=== PATIENT | female | born 1995 | race Caucasian/White ===

== ENCOUNTER 2022-04-14 07:35 | Inpatient (IN) ==
[2022-04-14] MEDS ORDERED: OXYTOCIN 30 UNITS/500 ML BAG IV PRN (08:56)
[2022-04-14 09:24] LABS: Hematocrit (blood only) 36.1 % (34.1-44.9); Mean Corpuscular Hemoglobin 28.6 pg (25.0-34.0); Mean Corpuscular Hgb Conc 33.2 g/dL (32.0-36.0); Mean Corpuscular Volume 86.2 fL (80.0-100.0); Platelet Count 176 K/uL (130-400); RDW Coefficient of Variation 16.8 % (11.5-14.5); RDW Standard Deviation 52.6 fL (36.4-46.3); Red Blood Count 4.19 M/uL (3.93-5.22); White Blood Count 8.16 K/ul (4.8-10.8)
--- NOTE | 2022-04-14 09:59 | History & Physical Report ---
Date of Service April 14, 2022 Assessment & Plan (1) Post-dates : Plan Cytotec for cervical ripening Admission and Anticipated Discharge Date Admission Date: April 14, 2022 History of Present Illness Chief Complaint: induction of labor for post-dates Primary Care Provider: Phillip Uriostegui DO 26 f P0000 at 41.2 admitted for IOL for pos-dates Allergies Allergy/AdvReac Type Severity Reaction Status Date / Time No Known Allergies Allergy Verified 01/24/22 18:24 Home Medications Medication Instructions Recorded Confirmed Type ferrous sulfate 325 mg (65 mg 325 mg PO DAILY 01/24/22 04/14/22 History iron) tablet (iron) vit no.95-ferrous 1 tab PO DAILY 01/24/22 04/14/22 History fumarate 28 mg-folic acid 800 mcg tablet () Patient History Medical History ADHD Anxiety and depression Social History Smoking Status: Never smoker Hx Alcohol Use: No Hx Substance Use: No Preferred Language: Thai Communication Ability: Effective Financial Recruiter Required: No Beliefs That Will Affect Care: None marital status: Single Current Living Situation: Significant Other Current Living Situation Comment: Lives with fiance Other Information That Helps Us Care for You: No Feels Safe at Home: Yes Safety Concerns: Feels Safe At This Time Assistive Devices: None OB History GBS is neg 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 Review of Systems All systems reviewed & are unremarkable except as noted in HPI & below Physical Exam Constitutional: WD/WN, vitals as above Eyes: PERRL, conjunctivae normal, anicteric sclerae Respiratory: normal respiratory effort, lungs clear to auscultation Cardiovascular: RRR, no murmur, no edema Gastrointestinal (Abdomen): Inspection/Auscultation: abdomen normal to inspection Musculoskeletal: Extremities: extremities normal to inspection no edema Skin: no rashes, warm and dry Neurologic: patellar DTR's 2+ bilat, sensation intact Psychiatric: A+Ox3, euthymic affect Genitourinary: no vaginal lesions, no adnexal mass normal external appearance OB Exam Abdomen: + fundal height and + vertex Manual OB Exam: + cervical dilation fingertip, + cervical effacement 50% and + station high OB Exam Monitor Tracing: + external FHT monitor used, + external uterine monitor used, + category I and + normal FHT variability cervix firm and posterior Results & Data ([facility]) Vital Signs (Past 12 Hours) Vital Signs Temp Pulse Resp BP 04/14/22 07:49 36.7 C 100 H 18 129/76 04/14/22 07:54 100 H 129/76 Laboratory Results Laboratory Results - last 48 hr 04/14/22 09:11 WBC 8.16 RBC 4.19 Hgb 12.0 Hct 36.1 MCV 86.2 MCH 28.6 MCHC 33.2 RDW Std Deviation 52.6 H RDW Coeff of [place] 16.8 H Plt Count 176 MPV 10.0 Monitoring External Monitor Cat 1
[2022-04-14] MEDS ORDERED: DINOPROSTONE 10 MG INSERT PV ONE (10:15)
[2022-04-15] MEDS: miSOPROStoL 50 MCG TAB PO SCH ×3 (00:37→08:34)
[2022-04-15] MEDS ORDERED: OXYTOCIN 30 UNITS/500 ML BAG IV PRN (07:12)
--- NOTE | 2022-04-15 07:12 | Labor Progress Brief Note ---
Date of Service April 15, 2022 Assessment & Plan Admission and Anticipated Discharge Date Admission Date: April 14, 2022 Physical Exam Genitourinary: OB Exam Abdomen: + estimated weight (8 lbs) Manual OB Exam: + cervical dilation 1 cm, + cervical effacement 50% and + station -2 OB Exam Monitor Tracing: + external FHT monitor used, + external uterine monitor used, + category I and + normal FHT variability will start Oxytocin Results & Data ([facility]) Vital Signs (Past 12 Hours) Vital Signs Temp Pulse Resp BP 04/15/22 00:00 36.7 C 18 04/15/22 07:01 80 133/77 04/15/22 05:21 76 128/74 04/15/22 04:51 82 129/69 04/15/22 04:30 16 04/15/22 04:30 37.0 C 04/15/22 04:20 79 126/57 L 04/15/22 01:39 71 112/57 L 04/15/22 01:09 75 124/70 04/15/22 00:38 90 135/68 04/14/22 22:49 85 130/81 04/14/22 19:57 16 04/14/22 19:57 36.9 C 16 04/14/22 21:30 16 04/14/22 21:30 36.8 C 16 04/14/22 21:33 93 H 122/69 04/14/22 19:59 75 128/72
[2022-04-15] MEDS ORDERED: Nursing to Pharmacy Communication SCH (08:30)
[2022-04-15] MEDS: LACTATED RINGER'S 1,000 ML IV PRN ×3 (08:48→18:53)
[2022-04-15] MEDS ORDERED: BUTORPHANOL TARTRATE 1 MG/ML VIAL IV PRN (09:05)
--- NOTE | 2022-04-15 09:09 | Obstetrical Progress Note ---
Date of Service April 15, 2022 Assessment & Plan Admission and Anticipated Discharge Date Admission Date: April 14, 2022 Subjective Patient is seen and examined. Reviewed her records and confirmed with her. Denies medical problems except Depression/ anxiety. She was on medical Marijuana but stopped the the beginning of . she feels well and wants to wait her scheduled outpatient appointment with her P sychiatrist. No h/o STD'', no h/o HSV GBS neg VE: 1/ thick, -3, moderate FHR categ I [place]se: irregular ctxs She was started on low dose Oxytocin by Dr Barba, at 2 miu/min now. Discussed also option of Pizano balloon and she accepted. Continue to monitor. Results & Data ([facility]) Vital Signs (Past 12 Hours) Vital Signs Temp Pulse Resp BP 04/15/22 00:00 36.7 C 18 04/15/22 08:59 99 H 124/71 04/15/22 07:01 36.8 C 80 20 133/77 04/15/22 05:21 76 128/74 04/15/22 04:51 82 129/69 04/15/22 04:30 16 04/15/22 04:30 37.0 C 16 04/15/22 04:20 79 126/57 L 04/15/22 01:39 71 112/57 L 04/15/22 01:09 75 124/70 04/15/22 00:38 90 135/68 04/14/22 22:49 85 130/81 04/14/22 21:30 16 04/14/22 21:30 36.8 C 16 04/14/22 21:33 93 H 122/69
[2022-04-15] MEDS ORDERED: FLUCONAZOLE 50 MG TAB PO ONE (09:17)
--- NOTE | 2022-04-15 12:11 | Obstetrical Progress Note ---
Date of Service April 15, 2022 Assessment & Plan Admission and Anticipated Discharge Date Admission Date: April 14, 2022 Subjective Patient is reevaluated. She got up to use the bathroom and the Pizano bulb bulb came out. She is not painful and has not required any pain medication yet. Vaginal exam, cervix is 3 to 4 cm dilated, 30% effaced, head at -3 station. heart rate category 1, Shelly has been showing contractions every 2 to 5 minutes, Pitocin was at 4 mIU/min. Plan to continue to monitor and augment with Pitocin. All questions were answered. Results & Data ([facility]) Vital Signs (Past 12 Hours) Vital Signs Temp Pulse Resp BP 04/15/22 11:59 89 18 139/76 04/15/22 11:05 36.7 C 104 H 18 140/83 04/15/22 08:59 99 H 124/71 04/15/22 07:01 36.8 C 80 20 133/77 04/15/22 05:21 76 128/74 04/15/22 04:51 82 129/69 04/15/22 04:30 16 04/15/22 04:30 37.0 C 16 04/15/22 04:20 79 126/57 L 04/15/22 01:39 71 112/57 L 04/15/22 01:09 75 124/70 04/15/22 00:38 90 135/68
[2022-04-15] MEDS ORDERED: BUPIVACAINE 0.25% 30 ML VIAL ONE (14:14)
[2022-04-15] MEDS ORDERED: LIDOCAINE 2%/EPINEPHRINE 1:200,000 20 ML SDV ONE ×2 (14:14→23:05)
[2022-04-15] MEDS ORDERED: fentaNYL citrate 100 MCG/2 ML VIAL ONE (14:14)
[2022-04-15] MEDS ORDERED: SODIUM CHLORIDE 0.9% INJ 10 ML VIAL ONE (14:14)
[2022-04-15] MEDS ORDERED: ePHEDrine sulfate 50 MG/ML AMP ONE (14:14)
[2022-04-15] MEDS ORDERED: fentaNYL 2MCG/ML ROPIVACAINE 1.25MG/ML 100 ML BAG EPI ONE (14:15)
[2022-04-15] MEDS ORDERED: NALOXONE HCL 0.4 MG/1 ML VIAL/CARP IV PRN (14:33)
[2022-04-15] MEDS ORDERED: ONDANSETRON INJ 2 MG/ML 2 ML VIAL IV PRN (14:33)
[2022-04-15] MEDS ORDERED: diphenhydrAMINE 50 MG/ML VIAL IV PRN (14:33)
[2022-04-15] MEDS ORDERED: ePHEDrine sulfate 50 MG/ML AMP IV PRN (14:33)
[2022-04-15] MEDS ORDERED: NALOXONE HCL 1 MG in SODIUM CHLORIDE 0.9% 1000ML 1,000 ML IV PRN (14:33)
[2022-04-15] MEDS ORDERED: NALBUPHINE HCL INJ 10 MG/ML AMP IV PRN (14:33)
--- NOTE | 2022-04-15 14:34 | Anesthesiology Consultation ---
Date of Service April 15, 2022 Assessment & Plan ASA ASA2 Proposed Anesthesia Anesthesia Type: Labor Epidural Risk / Benefits Reviewed With: PT / POA / Parent / Guardian, Accepts Plan and Informed Consent Obtained History Height/Weight Height: 5 ft 8 in Weight: 97.976 kg Allergies Allergy/AdvReac Type Severity Reaction Status Date / Time No Known Allergies Allergy Verified 01/24/22 18:24 Medications Home Medications Medication Instructions Recorded Confirmed Last Taken ferrous sulfate 325 mg (65 mg 325 mg PO DAILY 01/24/22 04/14/22 04/14/22 iron) tablet (iron) vit no.95-ferrous 1 tab PO DAILY 01/24/22 04/14/22 04/14/22 fumarate 28 mg-folic acid 800 mcg tablet () Active Medications Generic Name Dose Route Start Last Admin Trade Name Freq PRN Reason Stop Dose Admin Lactated Ringer's 1,000 mls @ 125 mls/hr 04/14/22 08:56 04/15/22 14:57 Lr IV 04/16/22 08:55 125 mls/hr .Q8H PRN Infusion L&D Protocol Protocol Oxytocin 30 units in 500 mls @ 10 mls/hr 04/15/22 07:12 04/15/22 13:40 Pitocin IV 04/17/22 07:11 0.6 units/hr .Q24H PRN 10 mls/hr Labor Induction/Augmentation Titration Protocol 0.6 UNITS/HR Ropivacaine 100 ml 04/15/22 14:33 04/15/22 14:53 Fentanyl 2mcg/Ml Ropivacaine 1.25mg/Ml 100 Ml Bag EPI 04/16/22 14:32 100 ml PRN PRN Administration Pain R/T Labor Protocol Past Medical History Medical History ADHD Anxiety and depression Exercise / Class Metabolic Activity II 4-5 Yardwork/Stairs/Walk up hill Past Anesthesia History No Hx of Anesthesia Complications and No Family Hx of Anesthesia Complications History of PONV No Hx of PONV and No Hx of Motion Sickness Social History Smoking Status: Never smoker Hx Alcohol Use: No Hx Substance Use: No Review of Systems denies fever/cough/ colds/ chest pain/ SOB/ JESSI denies JESSI Physical Exam Vital Signs Last Vital Signs Temp 36.7 C 04/15/22 11:05 Pulse 82 04/15/22 15:29 Resp 18 04/15/22 11:59 BP 114/67 04/15/22 15:25 Pulse Ox 98 04/15/22 15:29 ENMT Mouth: no TMJ abnormality and no dentition abnormality Thyromental Distance: > or= 3.5 Finger Breadths Mallampati Class: II Neck neck extension not limited Respiratory normal respiratory effort; no respiratory distress Auscultation: lungs clear to auscultation bilaterally Cardiovascular Rate/Rhythm: regular rate and regular rhythm Neurologic moves all extremities Psychiatric Orientation: alert and oriented x 3 Testing Laboratory Results 04/14/22 09:11
[2022-04-15] MEDS: fentaNYL 2MCG/ML ROPIVACAINE 1.25MG/ML 100 ML BAG EPI PRN ×2 (14:53→22:39)
--- NOTE | 2022-04-15 15:27 | Obstetrical Progress Note ---
Date of Service April 15, 2022 Assessment & Plan Admission and Anticipated Discharge Date Admission Date: April 14, 2022 Subjective Patient is comfortable now, she has received epidural. VE; 4/ 40%/ -2, AROM'ed small clear fluid FHR categ I Aldie: irregular ctxs q 2-5 min, Oxytocin is at 10 miu/min Continue to monitor closely Results & Data ([facility]) Vital Signs (Past 12 Hours) Vital Signs Temp Pulse Resp BP Pulse Ox 04/15/22 15:24 73 97 04/15/22 15:21 76 119/70 04/15/22 15:19 74 97 04/15/22 15:15 72 113/68 04/15/22 15:14 76 98 04/15/22 15:11 76 114/65 04/15/22 15:09 75 98 04/15/22 15:06 80 121/70 04/15/22 15:04 78 98 04/15/22 14:59 84 96 04/15/22 15:00 81 116/71 04/15/22 14:58 77 118/71 04/15/22 14:56 78 125/70 04/15/22 14:54 75 129/68 99 04/15/22 14:52 77 133/69 04/15/22 14:49 73 100 04/15/22 14:50 69 129/77 04/15/22 14:44 82 100 04/15/22 14:39 93 04/15/22 14:39 96 H 04/15/22 14:39 104 H 93 04/15/22 13:51 71 126/75 04/15/22 11:59 89 18 139/76 04/15/22 11:05 36.7 C 104 H 18 140/83 04/15/22 08:59 99 H 124/71 04/15/22 07:01 36.8 C 80 20 133/77 04/15/22 05:21 76 128/74 04/15/22 04:51 82 129/69 04/15/22 04:30 16 04/15/22 04:30 37.0 C 16 04/15/22 04:20 79 126/57 L
--- NOTE | 2022-04-15 18:12 | Obstetrical Progress Note ---
Date of Service April 15, 2022 Assessment & Plan Admission and Anticipated Discharge Date Admission Date: April 14, 2022 Subjective Patient is reevaluated. She is is still comfortable. VE; unchanged, 4 cm/ 50%/ -2 IUPC is placed Oxytocin is at 16 miu/ min. Plan to continue to monitor, titrate Oxytocin dose as needed per IUPC Results & Data ([facility]) Vital Signs (Past 12 Hours) Vital Signs Temp Pulse Resp BP Pulse Ox 04/15/22 18:04 73 98 04/15/22 18:03 93 H 91 04/15/22 17:59 79 98 04/15/22 17:54 82 98 04/15/22 17:49 77 97 04/15/22 17:48 67 111/60 04/15/22 17:44 73 97 04/15/22 17:39 86 96 04/15/22 17:34 78 99 04/15/22 17:33 74 121/67 04/15/22 17:29 76 99 04/15/22 17:24 86 98 04/15/22 17:19 97 04/15/22 17:19 65 04/15/22 17:19 64 113/60 04/15/22 17:14 65 97 04/15/22 17:09 61 97 04/15/22 17:04 63 96 04/15/22 17:03 63 116/62 04/15/22 16:59 63 96 04/15/22 16:49 64 97 04/15/22 16:54 64 97 04/15/22 16:48 61 115/60 04/15/22 16:44 66 95 04/15/22 16:39 63 97 04/15/22 16:34 69 96 04/15/22 16:33 68 121/67 04/15/22 16:29 69 97 04/15/22 16:24 66 97 04/15/22 16:19 66 97 04/15/22 16:18 75 122/63 04/15/22 16:14 75 96 04/15/22 16:09 74 95 04/15/22 16:04 70 119/65 96 04/15/22 15:59 68 95 04/15/22 15:54 61 95 04/15/22 15:53 68 94 04/15/22 15:49 60 95 04/15/22 15:48 70 111/62 07/30/22 15:46 66 94 04/15/22 15:44 63 95 04/15/22 15:41 65 94 04/15/22 15:39 74 97 04/15/22 15:34 85 97 04/15/22 15:30 74 116/68 04/15/22 15:29 82 98 04/15/22 15:25 80 114/67 04/15/22 15:24 73 97 04/15/22 15:21 76 119/70 04/15/22 15:19 74 97 04/15/22 15:15 72 113/68 04/15/22 15:14 76 98 04/15/22 15:11 76 114/65 04/15/22 15:09 75 98 04/15/22 15:06 80 121/70 04/15/22 15:04 78 98 04/15/22 14:59 84 96 04/15/22 15:00 81 116/71 04/15/22 14:58 77 118/71 04/15/22 14:56 78 125/70 04/15/22 14:54 75 129/68 99 04/15/22 14:52 77 133/69 04/15/22 14:49 73 100 04/15/22 14:50 69 129/77 04/15/22 14:44 82 100 04/15/22 14:39 93 04/15/22 14:39 96 H 04/15/22 14:39 104 H 93 04/15/22 13:51 71 126/75 04/15/22 11:59 89 18 139/76 04/15/22 11:05 36.7 C 104 H 18 140/83 04/15/22 08:59 99 H 124/71 04/15/22 07:01 36.8 C 80 20 133/77
--- NOTE | 2022-04-15 19:51 | Obstetrical Progress Note ---
Date of Service April 15, 2022 Assessment & Plan Admission and Anticipated Discharge Date Admission Date: April 14, 2022 Subjective Heart rate in the decelerations to 80s to 90s for about 2 minutes, then un able to monitor the baby externally, scalp electrode is placed, heart rate running between 110-120s with moderate variability no more decels. IU has been monitoring contractions every 1 to 4 minutes averaging around 200 [place] units per 10 minutes, Oxytocin is at 20 mill international unit per minute, Continue to monitor closely. Results & Data ([facility]) Vital Signs (Past 12 Hours) Vital Signs Temp Pulse Resp BP Pulse Ox 04/15/22 19:44 76 99 04/15/22 19:39 73 98 04/15/22 19:34 75 120/57 L 99 04/15/22 19:29 73 98 04/15/22 19:24 68 98 04/15/22 19:19 76 98 04/15/22 19:18 79 121/66 04/15/22 19:14 77 97 04/15/22 19:09 89 98 04/15/22 19:04 72 96 04/15/22 19:03 71 116/64 04/15/22 18:59 75 95 04/15/22 18:54 90 96 04/15/22 18:49 86 96 04/15/22 18:48 68 115/63 04/15/22 18:44 71 95 04/15/22 18:43 73 94 04/15/22 18:39 84 96 04/15/22 17:13 18 04/15/22 17:13 36.8 C 18 04/15/22 18:34 69 95 04/15/22 18:33 68 117/67 04/15/22 18:29 72 95 04/15/22 18:24 80 97 04/15/22 18:19 80 97 04/15/22 18:18 77 116/66 04/15/22 18:14 91 H 96 04/15/22 18:09 88 95 04/15/22 18:04 73 98 04/15/22 18:03 93 H 91 04/15/22 17:59 79 98 04/15/22 17:54 82 98 04/15/22 17:49 77 97 04/15/22 17:48 67 111/60 04/15/22 17:44 73 97 04/15/22 17:39 86 96 04/15/22 17:34 78 99 04/15/22 17:33 74 121/67 04/15/22 17:29 76 99 04/15/22 17:24 86 98 04/15/22 17:19 97 04/15/22 17:19 65 04/15/22 17:19 64 113/60 04/15/22 17:14 65 97 04/15/22 17:09 61 97 04/15/22 17:04 63 96 04/15/22 17:03 63 116/62 04/15/22 16:59 63 96 04/15/22 16:49 64 97 04/15/22 16:54 64 97 04/15/22 16:48 61 115/60 04/15/22 16:44 66 95 04/15/22 16:39 63 97 04/15/22 16:34 69 96 04/15/22 16:33 68 121/67 04/15/22 16:29 69 97 04/15/22 16:24 66 97 04/15/22 16:19 66 97 04/15/22 16:18 75 122/63 04/15/22 16:14 75 96 04/15/22 16:09 74 95 04/15/22 16:04 70 119/65 96 04/15/22 15:59 68 95 04/15/22 15:54 61 95 04/15/22 15:53 68 94 04/15/22 15:49 60 95 04/15/22 15:48 70 111/62 04/15/22 15:46 66 94 04/15/22 15:44 63 95 04/15/22 15:41 65 94 04/15/22 15:39 74 97 04/15/22 15:34 85 97 04/15/22 15:30 74 116/68 04/15/22 15:29 82 98 04/15/22 15:25 80 114/67 04/15/22 15:24 73 97 04/15/22 15:21 76 119/70 04/15/22 15:19 74 97 04/15/22 15:15 36.7 C 72 20 113/68 04/15/22 15:14 76 98 04/15/22 15:11 76 114/65 04/15/22 15:09 75 98 04/15/22 15:06 80 121/70 04/15/22 15:04 78 98 04/15/22 14:59 84 96 04/15/22 15:00 81 116/71 04/15/22 14:58 77 118/71 04/15/22 14:56 78 125/70 04/15/22 14:54 75 129/68 99 04/15/22 14:52 77 133/69 04/15/22 14:49 73 100 04/15/22 14:50 69 129/77 04/15/22 14:44 82 100 04/15/22 14:39 93 04/15/22 14:39 96 H 04/15/22 14:39 104 H 93 04/15/22 13:51 71 126/75 04/15/22 11:59 89 18 139/76 04/15/22 11:05 36.7 C 104 H 18 140/83 04/15/22 08:59 99 H 124/71
[2022-04-15] MEDS ORDERED: AZITHROMYCIN 500 MG in DEXTROSE 5% 250 ML IV STA (21:48)
--- NOTE | 2022-04-15 21:48 | Obstetrical Progress Note ---
Date of Service April 15, 2022 Assessment & Plan Admission and Anticipated Discharge Date Admission Date: April 14, 2022 Subjective Patient is related. Cervix is unchanged, head is still high with no descent. heart rate category 1, [place] with irregular contraction pattern sometimes episodes of contractions every minutes for 10 minutes and then every 2 to 4 minutes. Unable to get a good contraction pattern with IV oxytocin and AROM. Overall we are getting more than 200 [place] units in 10 minutes. Discussed the findings with the patient, no cervical change nor change in station despite adequate uterine contractions. Discussed the option of expectant management to continue with Pitocin versus primary section. Discussed the risks and benefits of each. Patient understands and wants to think about it and then decide. All questions were answered. Results & Data ([facility]) Vital Signs (Past 12 Hours) Vital Signs Temp Pulse Resp BP Pulse Ox O2 Del Method 04/15/22 19:10 Room Air 04/15/22 21:44 83 98 04/15/22 21:39 85 99 04/15/22 21:34 82 98 04/15/22 21:33 78 139/75 04/15/22 21:29 94 H 98 04/15/22 21:24 71 97 04/15/22 21:19 79 98 04/15/22 21:18 86 137/94 04/15/22 21:14 88 97 04/15/22 21:09 82 95 04/15/22 21:08 69 94 04/15/22 21:00 18 04/15/22 21:00 18 04/15/22 20:50 36.7 C 04/15/22 21:04 64 96 04/15/22 21:03 62 120/63 04/15/22 20:59 64 96 04/15/22 20:54 65 98 04/15/22 20:49 78 98 04/15/22 20:48 68 122/67 04/15/22 20:44 68 98 04/15/22 20:39 69 98 04/15/22 20:30 18 04/15/22 20:30 18 04/15/22 20:34 72 99 04/15/22 20:33 73 123/70 04/15/22 20:29 71 99 04/15/22 20:24 88 99 04/15/22 19:30 18 07/30/22 19:30 18 04/15/22 20:00 20 04/15/22 20:00 20 04/15/22 20:19 99 04/15/22 20:19 81 04/15/22 20:19 73 117/66 04/15/22 20:14 76 99 04/15/22 19:30 18 04/15/22 19:30 18 04/15/22 19:15 18 04/15/22 19:15 36.4 C L 18 04/15/22 20:09 67 98 04/15/22 20:04 73 99 04/15/22 20:03 70 124/68 04/15/22 19:59 73 98 04/15/22 19:54 76 98 04/15/22 19:49 79 97 04/15/22 19:50 78 113/86 04/15/22 19:44 76 99 04/15/22 19:39 73 98 04/15/22 19:34 75 120/57 L 99 04/15/22 19:29 73 98 04/15/22 19:24 68 98 04/15/22 19:19 76 98 04/15/22 19:18 79 121/66 04/15/22 19:14 77 97 04/15/22 19:09 89 98 04/15/22 19:04 72 96 04/15/22 19:03 71 116/64 04/15/22 18:59 75 95 04/15/22 18:54 90 96 04/15/22 18:49 86 96 04/15/22 18:48 68 115/63 04/15/22 18:44 71 95 04/15/22 18:43 73 94 04/15/22 18:39 84 96 04/15/22 17:13 18 04/15/22 17:13 36.8 C 18 04/15/22 18:34 69 95 04/15/22 18:33 68 117/67 04/15/22 18:29 72 95 04/15/22 18:24 80 97 04/15/22 18:19 80 97 04/15/22 18:18 77 116/66 04/15/22 18:14 91 H 96 04/15/22 18:09 88 95 04/15/22 18:04 73 98 04/15/22 18:03 93 H 91 04/15/22 17:59 79 98 04/15/22 17:54 82 98 04/15/22 17:49 77 97 04/15/22 17:48 67 111/60 04/15/22 17:44 73 97 04/15/22 17:39 86 96 04/15/22 17:34 78 99 04/15/22 17:33 74 121/67 04/15/22 17:29 76 99 04/15/22 17:24 86 98 04/15/22 17:19 97 04/15/22 17:19 65 04/15/22 17:19 64 113/60 04/15/22 17:14 65 97 04/15/22 17:09 61 97 04/15/22 17:04 63 96 04/15/22 17:03 63 116/62 04/15/22 16:59 63 96 04/15/22 16:49 64 97 04/15/22 16:54 64 97 04/15/22 16:48 61 115/60 04/15/22 16:44 66 95 04/15/22 16:39 63 97 04/15/22 16:34 69 96 04/15/22 16:33 68 121/67 04/15/22 16:29 69 97 04/15/22 16:24 66 97 04/15/22 16:19 66 97 04/15/22 16:18 75 122/63 04/15/22 16:14 75 96 04/15/22 16:09 74 95 04/15/22 16:04 70 119/65 96 04/15/22 15:59 68 95 04/15/22 15:54 61 95 04/15/22 15:53 68 94 04/15/22 15:49 60 95 04/15/22 15:48 70 111/62 04/15/22 15:46 66 94 04/15/22 15:44 63 95 04/15/22 15:41 65 94 04/15/22 15:39 74 97 04/15/22 15:34 85 97 04/15/22 15:30 74 116/68 04/15/22 15:29 82 98 04/15/22 15:25 80 114/67 04/15/22 15:24 73 97 04/15/22 15:21 76 119/70 04/15/22 15:19 74 97 04/15/22 15:15 36.7 C 72 20 113/68 04/15/22 15:14 76 98 04/15/22 15:11 76 114/65 04/15/22 15:09 75 98 04/15/22 15:06 80 121/70 04/15/22 15:04 78 98 04/15/22 14:59 84 96 04/15/22 15:00 81 116/71 04/15/22 14:58 77 118/71 04/15/22 14:56 78 125/70 04/15/22 14:54 75 129/68 99 04/15/22 14:52 77 133/69 04/15/22 14:49 73 100 04/15/22 14:50 69 129/77 04/15/22 14:44 82 100 04/15/22 14:39 93 04/15/22 14:39 96 H 04/15/22 14:39 104 H 93 04/15/22 13:51 71 126/75 04/15/22 11:59 89 18 139/76 04/15/22 11:05 36.7 C 104 H 18 140/83
[2022-04-15] MEDS ORDERED: LACTATED RINGER'S 1,000 ML IV SCH ×2 (22:00→23:00)
--- NOTE | 2022-04-15 22:48 | Obstetrical Progress Note ---
Date of Service April 15, 2022 Assessment & Plan Admission and Anticipated Discharge Date Admission Date: April 14, 2022 Subjective Patient and came back from outside, they have discussed and decided to h ave . I checked her cervix again since it has been more than an hour since the last check, no change in cervix nor station of the head. Discussed risks of surgery including but not limited to bleeding, infection, injury to surrounding organs like bowels bladder ureters, more surgeries to correct complications, scaring, adhesions, increased risk of blood clots in legs and lungs. We also discussed the alternative expectant management and possible risks. She agreed all and signed an informed consent for primary low transverse C- section. All questions were answered. Results & Data ([facility]) Vital Signs (Past 12 Hours) Vital Signs Temp Pulse Resp BP Pulse Ox O2 Del Method 04/15/22 19:10 Room Air 04/15/22 22:44 92 H 100 04/15/22 22:39 98 H 100 04/15/22 22:34 93 H 99 04/15/22 22:33 86 138/74 04/15/22 22:29 96 H 99 04/15/22 22:24 94 H 98 04/15/22 22:19 91 H 98 04/15/22 22:18 89 127/72 04/15/22 22:14 85 99 04/15/22 22:09 86 98 04/15/22 22:00 18 04/15/22 22:00 18 04/15/22 21:30 20 04/15/22 21:30 20 04/15/22 22:04 99 04/15/22 22:04 84 04/15/22 22:04 80 135/78 04/15/22 21:59 82 99 04/15/22 21:54 83 99 04/15/22 21:49 99 04/15/22 21:49 88 04/15/22 21:49 78 137/80 04/15/22 21:44 83 98 04/15/22 21:39 85 99 04/15/22 21:34 82 98 04/15/22 21:33 78 139/75 04/15/22 21:29 94 H 98 04/15/22 21:24 71 97 04/15/22 21:19 79 98 04/15/22 21:18 86 137/94 04/15/22 21:14 88 97 04/15/22 21:09 82 95 04/15/22 21:08 69 94 04/15/22 21:00 18 04/15/22 21:00 18 04/15/22 20:50 36.7 C 04/15/22 21:04 64 96 04/15/22 21:03 62 120/63 04/15/22 20:59 64 96 04/15/22 20:54 65 98 04/15/22 20:49 78 98 04/15/22 20:48 68 122/67 04/15/22 20:44 68 98 04/15/22 20:39 69 98 04/15/22 20:30 18 04/15/22 20:30 18 04/15/22 20:34 72 99 04/15/22 20:33 73 123/70 04/15/22 20:29 71 99 04/15/22 20:24 88 99 04/15/22 19:30 18 04/15/22 19:30 18 04/15/22 20:00 20 04/15/22 20:00 20 04/15/22 20:19 99 04/15/22 20:19 81 04/15/22 20:19 73 117/66 04/15/22 20:14 76 99 04/15/22 19:30 18 04/15/22 19:30 18 04/15/22 19:15 18 04/15/22 19:15 36.4 C L 18 04/15/22 20:09 67 98 04/15/22 20:04 73 99 04/15/22 20:03 70 124/68 04/15/22 19:59 73 98 04/15/22 19:54 76 98 04/15/22 19:49 79 97 04/15/22 19:50 78 113/86 04/15/22 19:44 76 99 04/15/22 19:39 73 98 04/15/22 19:34 75 120/57 L 99 04/15/22 19:29 73 98 04/15/22 19:24 68 98 04/15/22 19:19 76 98 04/15/22 19:18 79 121/66 04/15/22 19:14 77 97 04/15/22 19:09 89 98 04/15/22 19:04 72 96 04/15/22 19:03 71 116/64 04/15/22 18:59 75 95 04/15/22 18:54 90 96 04/15/22 18:49 86 96 04/15/22 18:48 68 115/63 04/15/22 18:44 71 95 04/15/22 18:43 73 94 04/15/22 18:39 84 96 04/15/22 17:13 18 04/15/22 17:13 36.8 C 18 04/15/22 18:34 69 95 04/15/22 18:33 68 117/67 04/15/22 18:29 72 95 04/15/22 18:24 80 97 04/15/22 18:19 80 97 04/15/22 18:18 77 116/66 04/15/22 18:14 91 H 96 04/15/22 18:09 88 95 04/15/22 18:04 73 98 04/15/22 18:03 93 H 91 04/15/22 17:59 79 98 04/15/22 17:54 82 98 04/15/22 17:49 77 97 04/15/22 17:48 67 111/60 04/15/22 17:44 73 97 04/15/22 17:39 86 96 04/15/22 17:34 78 99 04/15/22 17:33 74 121/67 04/15/22 17:29 76 99 04/15/22 17:24 86 98 04/15/22 17:19 97 04/15/22 17:19 65 04/15/22 17:19 64 113/60 04/15/22 17:14 65 97 04/15/22 17:09 61 97 04/15/22 17:04 63 96 04/15/22 17:03 63 116/62 04/15/22 16:59 63 96 04/15/22 16:49 64 97 04/15/22 16:54 64 97 04/15/22 16:48 61 115/60 04/15/22 16:44 66 95 04/15/22 16:39 63 97 04/15/22 16:34 69 96 04/15/22 16:33 68 121/67 04/15/22 16:29 69 97 04/15/22 16:24 66 97 04/15/22 16:19 66 97 04/15/22 16:18 75 122/63 04/15/22 16:14 75 96 04/15/22 16:09 74 95 04/15/22 16:04 70 119/65 96 04/15/22 15:59 68 95 04/15/22 15:54 61 95 04/15/22 15:53 68 94 04/15/22 15:49 60 95 04/15/22 15:48 70 111/62 04/15/22 15:46 66 94 04/15/22 15:44 63 95 04/15/22 15:41 65 94 04/15/22 15:39 74 97 04/15/22 15:34 85 97 04/15/22 15:30 74 116/68 04/15/22 15:29 82 98 04/15/22 15:25 80 114/67 04/15/22 15:24 73 97 04/15/22 15:21 76 119/70 04/15/22 15:19 74 97 04/15/22 15:15 36.7 C 72 20 113/68 04/15/22 15:14 76 98 04/15/22 15:11 76 114/65 04/15/22 15:09 75 98 04/15/22 15:06 80 121/70 04/15/22 15:04 78 98 04/15/22 14:59 84 96 04/15/22 15:00 81 116/71 04/15/22 14:58 77 118/71 04/15/22 14:56 78 125/70 04/15/22 14:54 75 129/68 99 04/15/22 14:52 77 133/69 04/15/22 14:49 73 100 04/15/22 14:50 69 129/77 04/15/22 14:44 82 100 04/15/22 14:39 93 04/15/22 14:39 96 H 04/15/22 14:39 104 H 93 04/15/22 13:51 71 126/75 04/15/22 11:59 89 18 139/76 04/15/22 11:05 36.7 C 104 H 18 140/83
[2022-04-15] MEDS ORDERED: CITRIC ACID/SODIUM CITRATE 15 ML UDC PO ONE (22:50)
[2022-04-15] MEDS ORDERED: ceFAZolin 2000MG 2,000 MG/15 ML SYR IV ONE (23:00)
[2022-04-15] MEDS ORDERED: ONDANSETRON INJ 2 MG/ML 2 ML VIAL ONE (23:04)
[2022-04-15] MEDS ORDERED: MoRPHine SULFATE PF 1 MG/ML 10 ML AMP/VIAL ONE (23:04)
[2022-04-15] MEDS ORDERED: PHENYLEPHRINE 100MCG/ML 5ML SYR ONE (23:04)
[2022-04-15] MEDS ORDERED: OXYTOCIN 10 UNITS/ML 10ML VIAL ONE (23:04)
[2022-04-16] MEDS ORDERED: PROMETHAZINE HCL 6.25 MG in SODIUM CHLORIDE 0.9% 50 ML IV PRN (00:12)
[2022-04-16] MEDS ORDERED: MoRPHine SULFATE 2 MG/ML CARP IV PRN (00:12)
[2022-04-16] MEDS ORDERED: ePHEDrine sulfate 50 MG/ML AMP IV PRN (00:12)
[2022-04-16] MEDS ORDERED: MoRPHine SULFATE PF 1 MG/ML 10 ML AMP/VIAL EPI ONE (00:12)
[2022-04-16] MEDS ORDERED: NALOXONE HCL 0.4 MG/1 ML VIAL/CARP IV PRN (00:12)
[2022-04-16] MEDS ORDERED: diphenhydrAMINE 50 MG/ML VIAL IV PRN ×2 (00:12→18:12)
[2022-04-16] MEDS ORDERED: NALOXONE HCL 1 MG in SODIUM CHLORIDE 0.9% 1000ML 1,000 ML IV PRN (00:12)
[2022-04-16] MEDS ORDERED: NALOXONE HCL 0.08 MG in SYRINGE 1.8 ML IV PRN (00:12)
[2022-04-16] MEDS ORDERED: ONDANSETRON INJ 2 MG/ML 2 ML VIAL IV PRN ×2 (00:12→18:12)
[2022-04-16] MEDS ORDERED: LACTATED RINGER'S 500 ML IV PRN (00:12)
[2022-04-16] MEDS ORDERED: NO NARCOTICS OR SEDATIVES SCH (00:15)
[2022-04-16] MEDS ORDERED: DC INTRASPINAL MORPHINE SCH (00:15)
[2022-04-16] MEDS ORDERED: SODIUM CHLORIDE 0.9% 1000ML 1,000 ML IV SCH (00:15)
[2022-04-16] MEDS ORDERED: MAGNESIUM HYDROXIDE SUSP 30 ML UDC PO PRN (00:57)
[2022-04-16] MEDS ORDERED: DIPHTHERIA/TETANUS/PERTUSSIS 0.5 ML SYR/VIAL IM ONE (00:57)
[2022-04-16] MEDS ORDERED: HYDROCORTISONE ACETATE 25 MG SUPP PR PRN (00:57)
[2022-04-16] MEDS ORDERED: BENZOCAINE 20% AER SPR 82.5 GM CAN EXT PRN (00:57)
[2022-04-16] MEDS ORDERED: MEASLES, MUMPS & RUBELLA VIRUS VIAL SQ ONE (00:57)
[2022-04-16] MEDS ORDERED: SENNA 8.6 MG TAB PO PRN (00:57)
[2022-04-16] MEDS ORDERED: ACETAMINOPHEN 1000 MG/100 ML IV IV PRN (00:57)
--- NOTE | 2022-04-16 01:03 | Post Operative Brief Note ---
Immediate Post Op Note v1 Date of Surgery April 16, 2022 Pre & Post Diagnosis Operation Date: 04/15/22 23:30 Pre-Op Diagnosis: primary section for arrest of dilation and CPD Post-Op Diagnosis: same as pre op diagnosis I identified the patient and participated in the time-out.: Yes Procedure Operation Date: 04/15/22 23:30 Actual Procedures p Section in LD(Not Applicable) - Yanira Ashley MD Surgeon Yanira Ashley MD [employer] eleazar MCKEON Estimated Blood Loss 600 Findings Consistent with Post-Op Diagnosis Drains Pizano Catheter (150 ML) Anesthesia Type Labor Epidural Complications none
--- NOTE | 2022-04-16 01:04 | Anesthesia Procedure Note ---
Date of Service April 16, 2022 Anesthesia Post Epidural Note Vital Signs Vital Signs: Temp Pulse Resp BP Pulse Ox O2 Del Method 36.9 C 92 H 20 142/74 H 99 04/15/22 23:00 04/16/22 01:03 04/15/22 23:24 04/16/22 01:03 04/16/22 01:02 04/15/22 19:10 Notes Mental Status: alert / awake / arousable and participated in evaluation Nausea / Vomiting: adequately controlled Pain: adequately controlled Airway Patency, RR, SpO2: stable & adequate BP & HR: stable & adequate Hydration State: stable & adequate Neuraxial Anesthesia: was administered and sensory block is resolving Anesthetic Complications: no major complications apparent and Pt Satisfied with anesthetic care Epidural: Removed without complications and With tip intact
--- NOTE | 2022-04-16 01:05 | Anesthesiology Progress Note ---
Date of Service April 16, 2022 Anesthesia Post Procedure Vital Signs Vital Signs: Temp Pulse Resp BP Pulse Ox O2 Del Method 04/15/22 19:10 Room Air 04/16/22 01:02 89 99 04/16/22 01:03 92 H 142/74 H 04/16/22 00:59 86 117/70 04/16/22 00:57 92 H 100 04/15/22 23:24 20 04/15/22 23:24 20 04/15/22 23:00 18 04/15/22 23:00 36.9 C 18 04/15/22 23:19 91 H 100 04/15/22 23:18 90 133/77 04/15/22 23:14 94 H 100 04/15/22 23:09 97 H 100 04/15/22 23:04 93 H 100 04/15/22 22:30 20 04/15/22 22:30 20 04/15/22 23:03 93 H 139/76 04/15/22 22:59 91 H 100 04/15/22 22:54 97 H 100 04/15/22 22:49 96 H 100 04/15/22 22:48 93 H 146/81 H 04/15/22 22:46 99 H 91 04/15/22 22:44 92 H 100 04/15/22 22:39 98 H 100 04/15/22 22:34 93 H 99 04/15/22 22:33 86 138/74 04/15/22 22:29 96 H 99 04/15/22 22:24 94 H 98 04/15/22 22:19 91 H 98 04/15/22 22:18 89 127/72 04/15/22 22:14 85 99 04/15/22 22:09 86 98 04/15/22 22:00 18 04/15/22 22:00 18 04/15/22 21:30 20 04/15/22 21:30 20 04/15/22 22:04 99 04/15/22 22:04 84 04/15/22 22:04 80 135/78 04/15/22 21:59 82 99 04/15/22 21:54 83 99 04/15/22 21:49 99 04/15/22 21:49 88 04/15/22 21:49 78 137/80 04/15/22 21:44 83 98 04/15/22 21:39 85 99 04/15/22 21:34 82 98 04/15/22 21:33 78 139/75 04/15/22 21:29 94 H 98 04/15/22 21:24 71 97 04/15/22 21:19 79 98 04/15/22 21:18 86 137/94 04/15/22 21:14 88 97 04/15/22 21:09 82 95 04/15/22 21:08 69 94 04/15/22 21:00 18 04/15/22 21:00 18 04/15/22 20:50 36.7 C 04/15/22 21:04 64 96 04/15/22 21:03 62 120/63 04/15/22 20:59 64 96 04/15/22 20:54 65 98 04/15/22 20:49 78 98 04/15/22 20:48 68 122/67 04/15/22 20:44 68 98 04/15/22 20:39 69 98 04/15/22 20:30 18 04/15/22 20:30 18 04/15/22 20:34 72 99 04/15/22 20:33 73 123/70 04/15/22 20:29 71 99 04/15/22 20:24 88 99 04/15/22 19:30 18 04/15/22 19:30 18 04/15/22 20:00 20 04/15/22 20:00 20 04/15/22 20:19 99 04/15/22 20:19 81 04/15/22 20:19 73 117/66 04/15/22 20:14 76 99 04/15/22 19:30 18 04/15/22 19:30 18 04/15/22 19:15 18 04/15/22 19:15 36.4 C L 18 04/15/22 20:09 67 98 04/15/22 20:04 73 99 04/15/22 20:03 70 124/68 04/15/22 19:59 73 98 04/15/22 19:54 76 98 04/15/22 19:49 79 97 04/15/22 19:50 78 113/86 04/15/22 19:44 76 99 04/15/22 19:39 73 98 04/15/22 19:34 75 120/57 L 99 04/15/22 19:29 73 98 04/15/22 19:24 68 98 04/15/22 19:19 76 98 04/15/22 19:18 79 121/66 04/15/22 19:14 77 97 04/15/22 19:09 89 98 04/15/22 19:04 72 96 04/15/22 19:03 71 116/64 04/15/22 18:59 75 95 04/15/22 18:54 90 96 04/15/22 18:49 86 96 04/15/22 18:48 68 115/63 04/15/22 18:44 71 95 04/15/22 18:43 73 94 04/15/22 18:39 84 96 04/15/22 17:13 18 04/15/22 17:13 36.8 C 18 04/15/22 18:34 69 95 04/15/22 18:33 68 117/67 04/15/22 18:29 72 95 04/15/22 18:24 80 97 04/15/22 18:19 80 97 04/15/22 18:18 77 116/66 04/15/22 18:14 91 H 96 04/15/22 18:09 88 95 04/15/22 18:04 73 98 04/15/22 18:03 93 H 91 04/15/22 17:59 79 98 04/15/22 17:54 82 98 04/15/22 17:49 77 97 04/15/22 17:48 67 111/60 04/15/22 17:44 73 97 04/15/22 17:39 86 96 04/15/22 17:34 78 99 04/15/22 17:33 74 121/67 04/15/22 17:29 76 99 04/15/22 17:24 86 98 04/15/22 17:19 97 04/15/22 17:19 65 04/15/22 17:19 64 113/60 04/15/22 17:14 65 97 04/15/22 17:09 61 97 04/15/22 17:04 63 96 04/15/22 17:03 63 116/62 04/15/22 16:59 63 96 04/15/22 16:49 64 97 04/15/22 16:54 64 97 04/15/22 16:48 61 115/60 04/15/22 16:44 66 95 04/15/22 16:39 63 97 04/15/22 16:34 69 96 04/15/22 16:33 68 121/67 04/15/22 16:29 69 97 04/15/22 16:24 66 97 04/15/22 16:19 66 97 04/15/22 16:18 75 122/63 04/15/22 16:14 75 96 04/15/22 16:09 74 95 04/15/22 16:04 70 119/65 96 04/15/22 15:59 68 95 04/15/22 15:54 61 95 04/15/22 15:53 68 94 04/15/22 15:49 60 95 04/15/22 15:48 70 111/62 04/15/22 15:46 66 94 04/15/22 15:44 63 95 04/15/22 15:41 65 94 04/15/22 15:39 74 97 04/15/22 15:34 85 97 04/15/22 15:30 74 116/68 04/15/22 15:29 82 98 04/15/22 15:25 80 114/67 04/15/22 15:24 73 97 04/15/22 15:21 76 119/70 04/15/22 15:19 74 97 04/15/22 15:15 36.7 C 72 20 113/68 04/15/22 15:14 76 98 04/15/22 15:11 76 114/65 04/15/22 15:09 75 98 04/15/22 15:06 80 121/70 04/15/22 15:04 78 98 04/15/22 14:59 84 96 04/15/22 15:00 81 116/71 04/15/22 14:58 77 118/71 04/15/22 14:56 78 125/70 04/15/22 14:54 75 129/68 99 04/15/22 14:52 77 133/69 04/15/22 14:49 73 100 04/15/22 14:50 69 129/77 04/15/22 14:44 82 100 04/15/22 14:39 93 04/15/22 14:39 96 H 04/15/22 14:39 104 H 93 04/15/22 13:51 71 126/75 04/15/22 11:59 89 18 139/76 04/15/22 11:05 36.7 C 104 H 18 140/83 04/15/22 08:59 99 H 124/71 04/15/22 07:01 36.8 C 80 20 133/77 04/15/22 05:21 76 128/74 04/15/22 04:51 82 129/69 04/15/22 04:30 16 04/15/22 04:30 37.0 C 16 04/15/22 04:20 79 126/57 L 04/15/22 01:39 71 112/57 L 04/15/22 01:09 75 124/70 Transfer of Care Handoff Completed per policy Notes Mental Status: alert / awake / arousable and participated in evaluation Patient Amnestic to Procedure: No Nausea / Vomiting: adequately controlled Pain: adequately controlled Airway Patency, RR, SpO2: stable & adequate BP & HR: stable & adequate Hydration State: stable & adequate Neuraxial Anesthesia: was administered and sensory block is resolving Anesthetic Complications: no major complications apparent and Pt Satisfied with anesthetic care
[2022-04-16] MEDS: KETOROLAC 30 MG/ML VIAL IV PRN ×3 (01:14→14:09)
[2022-04-16] MEDS: NALBUPHINE HCL INJ 10 MG/ML AMP IV PRN ×2 (02:47→03:14)
[2022-04-16] MEDS: OXYTOCIN 20 UNITS in LACTATED RINGER'S 1,000 ML IV SCH ×2 (02:50→14:17)
[2022-04-16] MEDS ORDERED: ceFAZolin 2000MG 2,000 MG/15 ML SYR IV ONE (07:00)
--- NOTE | 2022-04-16 07:19 | Operative Report (OR) ---
DATE OF SURGERY: Start 04/15/2022, finished 04/16/2022. PREOPERATIVE DIAGNOSES: The patient is a 26-year-old G1, P0 at 41 weeks and 3 days of gestation, who was admitted for induction of labor on 04/14/2022, arrest of dilatation despite adequate uterine contractions documented by IUPC, asynclitic presentation of head. POSTOPERATIVE DIAGNOSES: The patient is a 26-year-old G1, P0 at 41 weeks and 3 days of gestation, who was admitted for induction of labor on 04/14/2022, arrest of dilatation despite adequate uterine contractions documented by IUPC, asynclitic presentation of head. Nuchal cord around the neck x3. SURGEON: Yanira Ashley MD. MARBLE POLISHER: MIKE Jeffrey, labor and delivery nurse. ESTIMATED BLOOD LOSS: 600 mL. DRAINS: Pizano catheter drained 150 mL of clear urine. ANESTHESIA: Epidural. ANESTHESIOLOGIST: Dr. Castillo. COMPLICATIONS: None. FINDINGS: Baby was a viable female infant delivered on 04/15/2022 at 11:54 p.m. Apgars were 8/9, weight was 3596 grams. Maternal findings: Thinned lower uterine segment, otherwise normal uterus and fallopian tubes and ovaries. DESCRIPTION OF PROCEDURE: The patient was taken to the operating room where epidural anesthesia was found to be adequate. She was placed in dorsal supine position with a leftward tilt. She was prepared and draped in the usual sterile fashion. A Pfannenstiel skin incision was made and carried through to the underlying layer of fascia with the Bovie. Fascia was incised in the midline and incision was extended laterally with the help of Willis scissors. The rectus fascia was dissected from the rectus muscles sharply with the Willis scissors superior and inferiorly. Rectus muscles were in the midline. Peritoneum was entered bluntly and peritoneal incision was extended superiorly and inferiorly with good visualization of bladder. Bladder blade was inserted. The vesicouterine peritoneum was identified, grasped with pickups, and entered sharply with Metzenbaum scissors. Bladder flap was created digitally and bladder blade was reinserted. Lower uterine segment was thinned. We were able to feel the head very easily on the top of the pubic bone, which was bulging from the pubic bone, indicating asynclitic presentation and CPD. The lower segment was incised in a transverse fashion gently and then bluntly with fingers, entered, membranes were ruptured. Clear fluid was obtained. The uterine incision was extended laterally with the help of fingers and head was brought to the incision and delivered without difficulty. There was a nuchal cord around the neck x3. Those were reduced and baby was delivered with minimal traction without difficulty. Mouth and nose were suctioned. Cord was clamped x2 and cut at 1 minute delay. Baby was vigorously moving and crying at that point and the baby was handed off to the waiting pediatric team. The rest of the cord was thick and tortuous, indicating clotting in the cord vessels. Placenta was delivered manually as intact and complete. Uterus was exteriorized and cleared of all clots and debris. This uterine incision was repaired with 0 Vicryl in a running locked fashion. A second imbricating layer was placed with another 0 Vicryl in a running locked fashion. There was some oozing in the middle, which was controlled with [id number] stitches x3. Cul-de-sac was irrigated with warm normal saline and suctioned. It was checked to be normal peritoneum, normal ovaries and fallopian tubes. Uterus was returned to the abdomen. Pelvis was irrigated with warm normal saline and suctioned. There was another oozing close to the left corner. It was repaired with 0 Vicryl with [id number] stitches x3. Ample of time was spent to check the incision for hemostasis. Excellent hemostasis was achieved. Then parietal peritoneum was reapproximated with 3-0 Vicryl together with the rectus muscle layer with the same suture in a running fashion. Rectus muscles and under the fascia were hemostatic. The fascia was reapproximated with 0 Vicryl in a running fashion. Subcuticular fat tissue was brought together with 3-0 Vicryl in a running fashion. The skin was closed with 4-0 Monocryl in a subcuticular fashion. The patient tolerated the procedure well. Sponge, lap, needle count was correct x3. She was given 2 grams of cefazolin before surgery and 500 mg of azithromycin during surgery. She was taken to the recovery room in stable condition. No complications happened and I was present during whole procedure. Job ID: [id number] [facility]
[2022-04-16] MEDS: FERROUS SULFATE 325 MG TAB PO SCH (08:12)
[2022-04-16] MEDS: PRENATAL VITAMIN 1 TAB PO SCH (08:12)
[2022-04-16] MEDS: SIMETHICONE 80 MG CHEW PO SCH ×4 (08:12→20:22)
[2022-04-16] MEDS: DOCUSATE SODIUM 100 MG CAP PO SCH ×2 (08:12→18:37)
--- NOTE | 2022-04-16 08:33 | Obstetrical Progress Note ---
Date of Service April 16, 2022 Assessment & Plan Admission and Anticipated Discharge Date Admission Date: April 14, 2022 Subjective Postop check Patient is seen and examined Feels well, no complaints Pain is under control with meds No CP/ SOB/ Dizziness/ N&V/ VB/ Leg pain Not OOB yet Tolerating clears Explained about the surgery and findings Vital Signs Temp Pulse Pulse Resp BP BP Pulse Ox 04/16/22 07:10 20 98 04/16/22 06:00 16 97 04/16/22 05:00 16 99 04/16/22 03:45 36.3 C L 80 16 127/95 98 04/16/22 03:45 16 99 04/16/22 03:05 36.9 C 18 04/16/22 02:35 18 04/16/22 02:05 16 04/16/22 02:05 16 04/16/22 01:55 16 04/16/22 01:45 18 04/16/22 01:35 18 04/16/22 01:25 20 04/16/22 01:15 18 04/16/22 01:03 36.8 C 16 04/16/22 03:14 93 H 138/87 04/16/22 03:12 85 97 04/16/22 03:07 98 H 98 04/16/22 03:02 101 H 99 04/16/22 02:57 97 H 99 04/16/22 02:56 81 128/62 04/16/22 02:52 88 99 04/16/22 02:47 82 98 04/16/22 02:45 75 126/72 04/16/22 02:42 82 99 04/16/22 02:37 88 98 04/16/22 02:35 82 128/73 04/16/22 02:32 89 98 04/16/22 02:27 80 97 04/16/22 02:26 83 123/70 04/16/22 02:22 82 98 04/16/22 02:17 77 97 04/16/22 02:16 75 127/64 04/16/22 02:12 81 98 04/16/22 02:07 87 98 04/16/22 02:02 84 98 04/16/22 01:57 93 H 98 04/16/22 01:56 96 H 142/88 H 04/16/22 01:52 91 H 97 04/16/22 01:47 97 H 95 04/16/22 01:46 90 140/82 04/16/22 01:42 96 H 99 04/16/22 01:37 95 H 99 04/16/22 01:36 95 H 138/81 04/16/22 01:32 88 99 04/16/22 01:27 93 H 99 04/16/22 01:26 90 113/81 04/16/22 01:22 94 H 100 04/16/22 01:17 98 H 98 04/16/22 01:15 89 129/74 04/16/22 01:12 93 H 100 04/16/22 01:07 95 H 99 04/16/22 01:08 94 H 90 04/16/22 01:02 89 99 04/16/22 01:03 92 H 142/74 H 04/16/22 00:59 86 117/70 04/16/22 00:57 92 H 100 04/15/22 23:24 20 04/15/22 23:24 20 04/15/22 23:00 18 04/15/22 23:00 36.9 C 18 04/15/22 23:19 91 H 100 04/15/22 23:18 90 133/77 04/15/22 23:14 94 H 100 04/15/22 23:09 97 H 100 04/15/22 23:04 93 H 100 04/15/22 22:30 20 04/15/22 22:30 20 04/15/22 23:03 93 H 139/76 04/15/22 22:59 91 H 100 04/15/22 22:54 97 H 100 04/15/22 22:49 96 H 100 04/15/22 22:48 93 H 146/81 H 04/15/22 22:46 99 H 91 04/15/22 22:44 92 H 100 04/15/22 22:39 98 H 100 04/15/22 22:34 93 H 99 04/15/22 22:33 86 138/74 04/15/22 22:29 96 H 99 04/15/22 22:24 94 H 98 04/15/22 22:19 91 H 98 04/15/22 22:18 89 127/72 04/15/22 22:14 85 99 04/15/22 22:09 86 98 04/15/22 22:00 18 04/15/22 22:00 18 04/15/22 21:30 20 04/15/22 21:30 20 04/15/22 22:04 99 04/15/22 22:04 84 04/15/22 22:04 80 135/78 04/15/22 21:59 82 99 04/15/22 21:54 83 99 04/15/22 21:49 99 04/15/22 21:49 88 04/15/22 21:49 78 137/80 04/15/22 21:44 83 98 04/15/22 21:39 85 99 04/15/22 21:34 82 98 04/15/22 21:33 78 139/75 04/15/22 21:29 94 H 98 04/15/22 21:24 71 97 04/15/22 21:19 79 98 04/15/22 21:18 86 137/94 04/15/22 21:14 88 97 04/15/22 21:09 82 95 04/15/22 21:08 69 94 04/15/22 21:00 18 04/15/22 21:00 18 04/15/22 20:50 36.7 C 04/15/22 21:04 64 96 04/15/22 21:03 62 120/63 04/15/22 20:59 64 96 04/15/22 20:54 65 98 04/15/22 20:49 78 98 04/15/22 20:48 68 122/67 04/15/22 20:44 68 98 04/15/22 20:39 69 98 04/15/22 20:34 72 99 04/15/22 20:33 73 123/70 Lab Results 04/14/22 Range/Units 09:11 WBC 8.16 (4.8-10.8) K/ul RBC 4.19 (3.93-5.22) M/uL Hgb 12.0 (12.0-16.0) g/dl Hct 36.1 (34.1-44.9) % MCV 86.2 (80.0-100.0) fL MCH 28.6 (25.0-34.0) pg MCHC 33.2 (32.0-36.0) g/dL RDW Std Deviation 52.6 H (36.4-46.3) fL RDW Coeff of Deidre 16.8 H (11.5-14.5) % Plt Count 176 (130-400) K/uL MPV 10.0 (9.4-12.3) fL PE: General: Alert, orientedx3, NAD CVS: S1S2 RRR Lungs: CTAB Abd: soft, NT, ND, BS+, fundus firm, below U, Dressing: C/D/I No VB Ext: NT, no edema, SCD's on AP: 26 yo female s/p Primary Csection , pod#0 VSS Afebrile doing well Continue to routine postop care Encourage PO intake, ambulation D/C clark in pm Results & Data ([facility]) Vital Signs (Past 12 Hours) Vital Signs Temp Pulse Pulse Resp BP BP Pulse Ox 04/16/22 07:10 20 98 04/16/22 06:00 16 97 04/16/22 05:00 16 99 04/16/22 03:45 36.3 C L 80 16 127/95 98 04/16/22 03:45 16 99 04/16/22 03:05 36.9 C 18 04/16/22 02:35 18 04/16/22 02:05 16 04/16/22 02:05 16 04/16/22 01:55 16 04/16/22 01:45 18 04/16/22 01:35 18 04/16/22 01:25 20 04/16/22 01:15 18 04/16/22 01:03 36.8 C 16 04/16/22 03:14 93 H 138/87 04/16/22 03:12 85 97 04/16/22 03:07 98 H 98 04/16/22 03:02 101 H 99 04/16/22 02:57 97 H 99 04/16/22 02:56 81 128/62 04/16/22 02:52 88 99 04/16/22 02:47 82 98 04/16/22 02:45 75 126/72 04/16/22 02:42 82 99 04/16/22 02:37 88 98 04/16/22 02:35 82 128/73 04/16/22 02:32 89 98 04/16/22 02:27 80 97 04/16/22 02:26 83 123/70 04/16/22 02:22 82 98 04/16/22 02:17 77 97 04/16/22 02:16 75 127/64 04/16/22 02:12 81 98 04/16/22 02:07 87 98 04/16/22 02:02 84 98 04/16/22 01:57 93 H 98 04/16/22 01:56 96 H 142/88 H 04/16/22 01:52 91 H 97 04/16/22 01:47 97 H 95 04/16/22 01:46 90 140/82 04/16/22 01:42 96 H 99 04/16/22 01:37 95 H 99 04/16/22 01:36 95 H 138/81 04/16/22 01:32 88 99 04/16/22 01:27 93 H 99 04/16/22 01:26 90 113/81 04/16/22 01:22 94 H 100 04/16/22 01:17 98 H 98 04/16/22 01:15 89 129/74 04/16/22 01:12 93 H 100 04/16/22 01:07 95 H 99 04/16/22 01:08 94 H 90 04/16/22 01:02 89 99 04/16/22 01:03 92 H 142/74 H 04/16/22 00:59 86 117/70 04/16/22 00:57 92 H 100 04/15/22 23:24 20 04/15/22 23:24 20 04/15/22 23:00 18 04/15/22 23:00 36.9 C 18 04/15/22 23:19 91 H 100 04/15/22 23:18 90 133/77 04/15/22 23:14 94 H 100 04/15/22 23:09 97 H 100 04/15/22 23:04 93 H 100 04/15/22 22:30 20 04/15/22 22:30 20 04/15/22 23:03 93 H 139/76 04/15/22 22:59 91 H 100 04/15/22 22:54 97 H 100 04/15/22 22:49 96 H 100 04/15/22 22:48 93 H 146/81 H 04/15/22 22:46 99 H 91 04/15/22 22:44 92 H 100 04/15/22 22:39 98 H 100 04/15/22 22:34 93 H 99 04/15/22 22:33 86 138/74 04/15/22 22:29 96 H 99 04/15/22 22:24 94 H 98 04/15/22 22:19 91 H 98 04/15/22 22:18 89 127/72 04/15/22 22:14 85 99 04/15/22 22:09 86 98 04/15/22 22:00 18 04/15/22 22:00 18 04/15/22 21:30 20 04/15/22 21:30 20 04/15/22 22:04 99 04/15/22 22:04 84 04/15/22 22:04 80 135/78 04/15/22 21:59 82 99 04/15/22 21:54 83 99 04/15/22 21:49 99 04/15/22 21:49 88 04/15/22 21:49 78 137/80 04/15/22 21:44 83 98 04/15/22 21:39 85 99 04/15/22 21:34 82 98 04/15/22 21:33 78 139/75 04/15/22 21:29 94 H 98 04/15/22 21:24 71 97 04/15/22 21:19 79 98 04/15/22 21:18 86 137/94 04/15/22 21:14 88 97 04/15/22 21:09 82 95 04/15/22 21:08 69 94 04/15/22 21:00 18 04/15/22 21:00 18 04/15/22 20:50 36.7 C 04/15/22 21:04 64 96 04/15/22 21:03 62 120/63 04/15/22 20:59 64 96 04/15/22 20:54 65 98 04/15/22 20:49 78 98 04/15/22 20:48 68 122/67 04/15/22 20:44 68 98 04/15/22 20:39 69 98 04/15/22 20:34 72 99 04/15/22 20:33 73 123/70
[2022-04-16] MEDS ORDERED: LACTATED RINGER'S 1,000 ML IV SCH (17:00)
[2022-04-16] MEDS ORDERED: MEPERIDINE HCL 50 MG/ML CARP IV PRN (18:12)
[2022-04-16] MEDS ORDERED: diphenhydrAMINE Capsule 25 MG CAP PO PRN (18:12)
[2022-04-16] MEDS ORDERED: PROMETHAZINE HCL 25 MG in SODIUM CHLORIDE 0.9% 50 ML IV PRN (18:12)
[2022-04-16] MEDS: oxyCODONE/ACETAMINOPHEN 5mg/325mg TAB PO PRN ×2 (18:38→20:23)
[2022-04-16] MEDS: IBUPROFEN 600 MG TAB PO PRN (20:22)
[2022-04-17] MEDS: IBUPROFEN 600 MG TAB PO PRN ×4 (01:33→17:46)
[2022-04-17] MEDS: oxyCODONE/ACETAMINOPHEN 5mg/325mg TAB PO PRN ×2 (01:34→21:21)
[2022-04-17 06:03] LABS: Basophils # (auto) 0.03 K/uL (0-0.2); Basophils % (auto) 0.3 %; Eosinophils # (auto) 0.07 K/uL (0-0.50); Eosinophils % (auto) 0.8 %; Hematocrit (blood only) 28.3 % (34.1-44.9); Hemoglobin 9.4 g/dl (12.0-16.0); Immature Granulocytes # (auto) 0.09 K/uL (0.00-0.02); Lymphocytes # (auto) 1.58 K/uL (1.2-3.4); Lymphocytes % (auto) 17.2 %; Mean Corpuscular Hemoglobin 29.4 pg (25.0-34.0); Mean Corpuscular Hgb Conc 33.2 g/dL (32.0-36.0); Mean Corpuscular Volume 88.4 fL (80.0-100.0); Mean Platelet Volume 10.1 fL (9.4-12.3); Monocytes # (auto) 0.81 K/uL (0.24-0.82); Monocytes % (auto) 8.8 %; Neutrophils # (auto) 6.62 K/uL (1.4-6.5); Neutrophils % (auto) 71.9 %; Platelet Count 153 K/uL (130-400); RDW Standard Deviation 54.7 fL (36.4-46.3)
[2022-04-17] MEDS: PRENATAL VITAMIN 1 TAB PO SCH (08:15)
[2022-04-17] MEDS: SIMETHICONE 80 MG CHEW PO SCH ×4 (08:15→21:21)
[2022-04-17] MEDS: FERROUS SULFATE 325 MG TAB PO SCH (08:15)
[2022-04-17] MEDS: DOCUSATE SODIUM 100 MG CAP PO SCH ×2 (08:16→21:21)
[2022-04-17] MEDS: ACETAMINOPHEN 500 MG TAB PO PRN ×3 (08:16→17:45)
--- NOTE | 2022-04-17 10:09 | Obstetrical Progress Note ---
Date of Service April 17, 2022 Subjective Ambulation: ambulating normally Voiding: no voiding problems Passing Gas:: Yes Diet Tolerance:: regular diet Lochia:: Small Feeding Type:: breast feeding Current Pain Level(1-10): 0 (doing well) Physical Exam Constitutional WD/WN, vitals as above Gastrointestinal (Abdomen) Inspection/Auscultation: + abdominal surgical incision incision c/d/i Musculoskeletal Extremities: extremities normal to inspection no edema. neg Tom's Skin no rashes, warm and dry Neurologic patellar DTR's 2+ bilat, sensation intact Psychiatric A+Ox3, euthymic affect Results & Data ([facility]) Vital Signs (Past 12 Hours) Vital Signs Temp Pulse Resp BP O2 Del Method 04/17/22 08:05 36.8 C 89 20 122/80 Room Air 04/17/22 00:00 37.0 C 97 H 16 126/74 Room Air Laboratory Results 04/14/22 04/17/22 09:11 05:34 WBC 8.16 9.20 RBC 4.19 3.20 L Hgb 12.0 9.4 L Hct 36.1 28.3 L MCV 86.2 88.4 MCH 28.6 29.4 MCHC 33.2 33.2 RDW Std Deviation 52.6 H 54.7 H RDW Coeff of Deidre 16.8 H 17.0 H Plt Count 176 153 MPV 10.0 10.1 Immature Gran % (Auto) 1.0 Neut % (Auto) 71.9 Lymph % (Auto) 17.2 Pratt % (Auto) 8.8 Eos % (Auto) 0.8 Baso % (Auto) 0.3 Neut # (Auto) 6.62 H Lymph # (Auto) 1.58 Pratt # (Auto) 0.81 Eos # (Auto) 0.07 Baso # (Auto) 0.03 Immature Gran # (Auto) 0.09 H Post Operative Report Pre & Post Diagnosis Operation Date: 04/15/22 23:30 Pre-Op Diagnosis: primary section for arrest of dilation and CPD Post-Op Diagnosis: same as pre op diagnosis I identified the patient and participated in the time-out.: Yes Procedure Operation Date: 04/15/22 23:30 Actual Procedures p Section in LD delivery of live female child at 2354 on April 15(Not Applicable) - Yanira Ashley MD Surgeon Neal Barba MD [employer] Jewelry eleazar MCKEON Estimated Blood Loss 600 Findings Consistent with Post-Op Diagnosis Specimens placenta Description of Procedure I attest to the content of the Intraoperative Record and any orders documented therein. Any exceptions are noted below.
[2022-04-17] MEDS ORDERED: bisacodyL 5 MG TABEC PO SCH (20:00)
[2022-04-18] MEDS ORDERED: bisacodyL 10 MG SUPP PR PRN (00:57)
[2022-04-18] MEDS: IBUPROFEN 600 MG TAB PO PRN ×2 (01:46→07:46)
[2022-04-18] MEDS: ACETAMINOPHEN 500 MG TAB PO PRN ×2 (01:47→07:45)
[2022-04-18] MEDS: oxyCODONE/ACETAMINOPHEN 5mg/325mg TAB PO PRN (05:19)
[2022-04-18 06:18] LABS: Hematocrit (blood only) 31.8 % (34.1-44.9); Hemoglobin 10.3 g/dl (12.0-16.0)
[2022-04-18] MEDS: FERROUS SULFATE 325 MG TAB PO SCH (07:46)
[2022-04-18] MEDS: SIMETHICONE 80 MG CHEW PO SCH (07:46)
[2022-04-18] MEDS: DOCUSATE SODIUM 100 MG CAP PO SCH (07:46)
[2022-04-18] MEDS: PRENATAL VITAMIN 1 TAB PO SCH (07:46)
--- NOTE | 2022-04-18 10:39 | Obstetrical Progress Note ---
Date of Service April 18, 2022 Assessment & Plan Admission and Anticipated Discharge Date Admission Date: April 14, 2022 Subjective Patient is seen and examined. She feels well, no complaints. Pain is under control with oral meds. Ambulating without dizziness Voiding without difficulty Tolerating regular diet with out N&V Flatus + Bleeding is minimal No fever/ chills/ CP/ SOB/ N&V/ Leg pain Breast feeding without problems Vital Signs Temp Pulse Pulse Resp BP BP Pulse Ox 04/18/22 07:35 36.8 C 84 16 133/86 99 04/18/22 00:00 36.7 C 83 18 128/77 97 04/17/22 15:25 36.9 C 88 18 132/86 98 O2 Del Method 04/18/22 07:35 Room Air 04/18/22 00:00 Room Air 04/17/22 15:25 Room Air Lab Results 04/14/22 04/17/22 04/18/22 Range/Units 09:11 05:34 05:58 WBC 8.16 9.20 (4.8-10.8) K/ul RBC 4.19 3.20 L (3.93-5.22) M/uL Hgb 12.0 9.4 L 10.3 L (12.0-16.0) g/dl Hct 36.1 28.3 L 31.8 L (34.1-44.9) % MCV 86.2 88.4 (80.0-100.0) fL MCH 28.6 29.4 (25.0-34.0) pg MCHC 33.2 33.2 (32.0-36.0) g/dL RDW Std Deviation 52.6 H 54.7 H (36.4-46.3) fL RDW Coeff of Deidre 16.8 H 17.0 H (11.5-14.5) % Plt Count 176 153 (130-400) K/uL MPV 10.0 10.1 (9.4-12.3) fL Immature Gran % (Auto) 1.0 % Neut % (Auto) 71.9 % Lymph % (Auto) 17.2 % Anson % (Auto) 8.8 % Eos % (Auto) 0.8 % Baso % (Auto) 0.3 % Neut # (Auto) 6.62 H (1.4-6.5) K/uL Lymph # (Auto) 1.58 (1.2-3.4) K/uL Anson # (Auto) 0.81 (0.24-0.82) K/uL Eos # (Auto) 0.07 (0-0.50) K/uL Baso # (Auto) 0.03 (0-0.2) K/uL Immature Gran # (Auto) 0.09 H (0.00-0.02) K/uL PE: General: Alert, orientedx3, NAD CVS: S1S2 RRR Lungs; CTAB Abd: soft, NT, ND, BS+, fundus firm, below Umbilicus Incision: Clean, dry, intact Perineum intact, Lochia rubra minimal Ext; NT, no edema, AP: 26 yo s/p C Section, pod# 2 VSS Afebrile doing well Continue routine postop care Encourage ambulation, PO intake All questions were answered D/C home , f/u in office Results & Data ([facility]) Vital Signs (Past 12 Hours) Vital Signs Temp Pulse Pulse Resp BP Pulse Ox O2 Del Method 04/18/22 07:35 36.8 C 84 16 133/86 99 Room Air 04/18/22 00:00 36.7 C 83 18 128/77 97 Room Air
== END 2022-04-18 13:00 | disposition home or self-care (01) | DRG 788 ==
LOC: 4S1 07:35 → 4E2 04-16 03:59